=== PATIENT | male | born 1940 | race Asian ===

== ENCOUNTER 2022-12-04 16:07 | Inpatient (IN) | payer MEDICARE ==
[~2022-12-04] VITALS: Ht 167.6 cm; Wt 84.6 kg
--- NOTE | 2022-12-04 16:15 | NUR ---
PT IN BED 5 A/O X3, PLACED ON NC 2L FOR O2 SUPPORT PT IN SVT RATE OF 148 BPM. CONNECTED TO BEDSIDE MONITOR ECG/O2SAT/BP. ATTACHED TO AED FOR MONITORING. ADENOSINE ORDERED AND PUSHED PER MD ORDER. NO RATE CHANGE NOTED. RT, MD, RN, CHARGE NURSE AT BEDSIDE ASSISTING AND MONITORING. PT STARTED ON NS FLUIDS
--- NOTE | 2022-12-04 16:18 | NUR ---
AT [facility] FOR EVAL.
--- NOTE | 2022-12-04 16:18 | NUR ---
BLOOD DRAWN AND SENT TO LAB.
[2022-12-04] MEDS ORDERED: ADENOSINE 6 MG/2 ML VIAL ONE ×3 (16:25→16:36)
[2022-12-04] MEDS ORDERED: ADENOSINE 6 MG/2 ML VIAL IVP ONE (16:30)
--- NOTE | 2022-12-04 16:30 | NUR ---
ADENOSINE GIVEN 6MG PUSHED AND RAPID FLUSH NO RATE CHANGE AFTER 2 MINUTES. PUSHED ADDITIONAL 12MG PUSHED NO CHAGE SEEN AFTER SEVERAL MINUTES
--- NOTE | 2022-12-04 16:42 | NUR ---
DR. OCASIO SPEAKING WITH DR. ORTEZ.
[2022-12-04 16:45] LABS: BASOPHILS % (AUTO) 0.4 % (0.0-2.0); HEMATOCRIT 39 % (39-51); HEMOGLOBIN 12.6 g/dL (13.5-17.5); LYMPHOCYTES # (AUTO) 1.5 K/uL (0.8-4.8); LYMPHOCYTES % (AUTO) 29.2 % (20.0-44.0); MEAN CORPUSCULAR HGB CONC 33 g/dl (31.0-36.0); MEAN CORPUSCULAR VOLUME 98 fL (80-96); MONOCYTES # (AUTO) 0.6 K/uL (0.1-1.30); MONOCYTES % (AUTO) 11.2 % (2.0-12.0); NEUTROPHILS % (AUTO) 58.2 % (43.0-81.0); PLATELET COUNT (AUTO) 186 K/uL (150-450); RED BLOOD CELL COUNT(AUTO) 3.93 MIL/uL (4.5-6.0); WHITE BLOOD COUNT (AUTO) 5.1 K/uL (4.3-11.0)
[2022-12-04] MEDS ORDERED: DILTIAZEM HCL 25 MG IV ONE (16:47)
[2022-12-04] MEDS ORDERED: DILTIAZEM HCL 50 MG IV IV ONE (17:00)
[2022-12-04 17:13] LABS: ALANINE AMINOTRANSFERASE 32 U/L (12-78); ALBUMIN 3.2 g/dL (3.4-5.0); ALKALINE PHOSPHATASE 46 U/L (46-116); ASPARTATE AMINOTRANSFERASE 50 U/L (15-37); BILIRUBIN,DIRECT 0.1 mg/dL (0.0-0.2); BILIRUBIN,TOTAL 0.8 mg/dL (0.2-1.0); CALCIUM, SERUM 8.7 mg/dL (8.5-10.1); CARBON DIOXIDE 21 mmol/L (21-32); CHLORIDE 107 mmol/L (98-107); CREATININE 1.2 mg/dL (0.6-1.3); GLUCOSE 166 mg/dL (74-106); POTASSIUM 5.4 mmol/L (3.5-5.1); SODIUM SERUM 136 mmol/L (136-145); TOTAL PROTEIN, SERUM 6.7 g/dL (6.4-8.2); UREA NITROGEN, BLOOD 21 mg/dL (7-18)
[2022-12-04] MEDS ORDERED: LATA2.5D15 EACHEYE (17:16)
[2022-12-04] MEDS ORDERED: LEVO-146 PO (17:16)
[2022-12-04] MEDS ORDERED: OMEP20CA15 PO (17:16)
[2022-12-04] MEDS ORDERED: LOSA50TA39 PO (17:16)
[2022-12-04] MEDS ORDERED: CARV3.122 PO (17:16)
[2022-12-04] MEDS ORDERED: SACU1TAB PO (17:16)
[2022-12-04] MEDS ORDERED: ATOR10TA PO (17:16)
--- NOTE | 2022-12-04 17:17 | NUR ---
TROP 1330 NOTIFED. RECEIVED CRITICAL
[2022-12-04] MEDS ORDERED: AMIODARONE 150 MG/3 ML VIAL IV ONE (17:30)
[2022-12-04] MEDS ORDERED: AMIODARONE 150 MG in IV D5W 100 ML IV ONE ×2 (17:30→18:00)
[2022-12-04] MEDS ORDERED: SODIUM POLYSTYRENE SULFONATE 15 G/60 ML BOTTLE PO ONE (17:30)
[2022-12-04] MEDS ORDERED: AMIODARONE 450 MG in IV D5W 241 ML IV PRN (18:00)
[2022-12-04] MEDS ORDERED: SODIUM POLYSTYRENE SULFONATE 15 G/60 ML BOTTLE ONE (18:11)
[2022-12-04] MEDS ORDERED: PROPOFOL 20 ML IV ONE (18:24)
[2022-12-04] MEDS ORDERED: PROPOFOL 200 MG/20 ML VIAL IV ONE (18:30)
--- NOTE | 2022-12-04 18:30 | NUR ---
SYNCHRONIZED CARDIOVERSION IN PROCESS RT, 2 RS AT BEDSIDE. 1840 100J W/ SYNC OPTION ACTIVATED. AFTER DELIVERING SHOCK PT CONVERTED TO SINUS. O2 SAT BEGAN TO DROP PT WAS BAGED BY RT AND GIVEN 15L WHILE BAGGING IN PROCESS, OPA INSERTED TO MAINTAIN PATENT AIRWAY. AFER 15 MINUTES PTS GAG AND SPONTANIOUS RESPIRATIONS RETURNED PLACED ON NONREBREATHER TO MAINTAIN O2 STATUS.
--- NOTE | 2022-12-04 18:44 | NUR ---
CALLED [facility] [phone] ART HAS EKG AND WILL CALL US BACK.
--- NOTE | 2022-12-04 18:46 | NUR ---
CALLED [facility] [phone] ORTEZ SPEAKING WITH DR. RICKS
--- NOTE | 2022-12-04 19:27 | NUR ---
MIGUEL ANGEL LAM SENT TO LAB
[2022-12-04] MEDS ORDERED: HEPARIN SODIUM, PORCINE 5000 UNITS/1 ML VIAL IV ONE (19:30)
--- NOTE | 2022-12-04 19:57 | NUR ---
EPIC PANEL PAGED
[2022-12-04] MEDS ORDERED: HEPARIN INFUSION/D5W 500 ML IV PRN (20:00)
--- NOTE | 2022-12-04 20:28 | NUR ---
HANDOFF REPORT GIVEN TO SARY FAUST
[2022-12-04] MEDS ORDERED: FUROSEMIDE 40 MG/4 ML VIAL ONE (21:23)
[2022-12-04] MEDS ORDERED: MAGNESIUM HYDROXIDE 30 ML UDC PO PRN (21:30)
[2022-12-04] MEDS ORDERED: ACETAMINOPHEN 325 MG TABLET PO PRN (21:30)
[2022-12-04] MEDS ORDERED: MAG HYDROX/AL HYDROX/SIMETH 30 ML UDC PO PRN (21:30)
[2022-12-04] MEDS ORDERED: ONDANSETRON HCL/PF 4 MG/2 ML VIAL IVP PRN (21:30)
[2022-12-04] MEDS ORDERED: FUROSEMIDE 40 MG/4 ML VIAL IV SCH (21:30)
[2022-12-04] MEDS ORDERED: Z GUARD REMEDY 4 OZ OINT TP PRN (21:30)
[2022-12-04 23:15] VITALS: BP 140/79
--- NOTE | 2022-12-04 23:17 | NUR ---
PT TRASNFERED WITH ACLS PROTOCAL. DELIVERED IN STABLE CONDITION ADMITTING NURSE WAS BEDSIDE TO RECIEVE PT.
[2022-12-04 23:30] VITALS: BP 113/54
--- NOTE | 2022-12-04 23:30 | NUR ---
Received patient from ED via ACLS protocol AAOX3.S/P cardioversion in ED. Patient with sob and wheezing O2 6LNC in place.SR.VSS.Amiodarone gtt infusing at 1mg/min to R hand and Heparin gtt at 1200 unit/hr to L hand.Both sites intact.Repositioned to comfort.HOB elevated. Plan of care implemented.
[2022-12-04] MEDS: HEPARIN INFUSION/D5W 500 ML IV PRN (23:43)
[2022-12-04 23:45] VITALS: BP 123/70
[2022-12-04] MEDS: AMIODARONE 450 MG in IV D5W 241 ML IV PRN (23:46)
[2022-12-05] VITALS (32 sets, daily range): BP systolic 104–177; BP diastolic 42–107
[2022-12-05] MEDS ORDERED: LEVALBUTEROL HCL NEB 1.25 MG/0.5 ML VIAL.NEB NEB PRN
[2022-12-05] MEDS ORDERED: LATANOPROST EYE DROP 0.005% 2.5 ML BOTTLE ONE (00:06)
[2022-12-05] MEDS: LATANOPROST EYE DROP 0.005% 2.5 ML BOTTLE EACHEYE SCH ×2 (00:16→21:12)
--- NOTE | 2022-12-05 02:00 | NUR ---
At 0107 patient c/o chest pain 3/10 Tylenol given as requested with relief.EKG done.Continue to monitor.
[2022-12-05] MEDS ORDERED: AMIODARONE 150 MG/3 ML VIAL IV ONE (02:17)
[2022-12-05] MEDS: AMIODARONE 450 MG in IV D5W 241 ML IV PRN (02:22)
--- NOTE | 2022-12-05 02:23 | NUR ---
PRN Xopenex TX given due to SOB and wheezing.
--- NOTE | 2022-12-05 03:00 | NUR ---
Patient unable to urinate per urinal.Wong Cath inserted aseptically by Aguilar ZEPEDA.Draining clear yellow urine.
[2022-12-05 03:30] LABS: BASOPHILS % (AUTO) 0.1 % (0.0-2.0); HEMATOCRIT 41 % (39-51); HEMOGLOBIN 13.5 g/dL (13.5-17.5); LYMPHOCYTES % (AUTO) 11.6 % (20.0-44.0); MEAN CORPUSCULAR HGB CONC 33 g/dl (31.0-36.0); MEAN CORPUSCULAR VOLUME 99 fL (80-96); MONOCYTES # (AUTO) 0.5 K/uL (0.1-1.30); MONOCYTES % (AUTO) 5.7 % (2.0-12.0); NEUTROPHILS # (AUTO) 6.9 K/uL (1.8-8.9); NEUTROPHILS % (AUTO) 82.6 % (43.0-81.0); PLATELET COUNT (AUTO) 170 K/uL (150-450); RED BLOOD CELL COUNT(AUTO) 4.15 MIL/uL (4.5-6.0); WHITE BLOOD COUNT (AUTO) 8.4 K/uL (4.3-11.0)
[2022-12-05] MEDS ORDERED: MORPHINE SULFATE INJ 2 MG/ML DISP.SYRIN IV PRN (03:30)
[2022-12-05] MEDS ORDERED: SODIUM BICARBONATE SYR 50 MEQ/50 ML DISP.SYRIN IV ONE (03:30)
--- NOTE | 2022-12-05 03:30 | NUR ---
Patient ABG'S result pH=7.2,pCO2=32.5,pO2=68.1,KLZ614.0 called to with orders received and carried out.Bipap will be place by RT.
[2022-12-05 03:45] LABS: ALANINE AMINOTRANSFERASE 836 U/L (12-78); ALBUMIN 3.1 g/dL (3.4-5.0); ALKALINE PHOSPHATASE 50 U/L (46-116); ASPARTATE AMINOTRANSFERASE 668 U/L (15-37); BILIRUBIN,TOTAL 1.7 mg/dL (0.2-1.0); CALCIUM, SERUM 7.9 mg/dL (8.5-10.1); CARBON DIOXIDE 18 mmol/L (21-32); CHLORIDE 107 mmol/L (98-107); CREATININE 1.5 mg/dL (0.6-1.3); GLUCOSE 169 mg/dL (74-106); MAGNESIUM 2.1 mg/dL (1.8-2.4); PHOSPHORUS 6.6 mg/dL (2.5-4.9); POTASSIUM 5.4 mmol/L (3.5-5.1); SODIUM SERUM 137 mmol/L (136-145); TOTAL PROTEIN, SERUM 6.7 g/dL (6.4-8.2); UREA NITROGEN, BLOOD 24 mg/dL (7-18)
--- NOTE | 2022-12-05 03:45 | NUR ---
pt placed on BIPAP on settings IPAP 15, EPAP 5, back up rate 16, FIO2 40% per MD orders Addendum: 12/05/22 at 0419 by GORAN DOUGLAS RT Amended: Links added.
[2022-12-05 03:53] LABS: THYROID STIMULATING HORMONE 2.995 uIU/mL (0.358-3.74)
[2022-12-05] MEDS ORDERED: SODIUM POLYSTYRENE SULF. PWD 15 GM UDC PO ONE (04:00)
--- NOTE | 2022-12-05 04:48 | NUR ---
Patient vomited while on BIPAP.Zofran administered as PRN meds.Maintain HOB elevated.
[2022-12-05] MEDS ORDERED: SODIUM POLYSTYRENE SULFONATE 15 G/60 ML BOTTLE ONE (04:54)
[2022-12-05] MEDS ORDERED: SODIUM POLYSTYRENE SULFONATE 15 G/60 ML BOTTLE PO STA (04:58)
[2022-12-05] MEDS ORDERED: SODIUM POLYSTYRENE SULFONATE 15 G/60 ML BOTTLE RC STA (04:59)
--- NOTE | 2022-12-05 06:00 | NUR ---
Patient congested.Secretions empty suction by RT Issac.Breathing tx given.AM care done. Heparin gtt restarted at 950 units/hr per weight Based Heparin Dosing Orders for ACS protocol. Amiodarone gtt infusing at 0.5mg/min Turned and repositioned.No acute distress noted.
--- NOTE | 2022-12-05 07:26 | NUR ---
VISION REHABILITATION THERAPIST NOTE Patient is resting in bed upon checking. GCS E4V5M6, bilateral pupils 3mm PEARLA. trade mark attorney showed SR HR 70s/min, with ST depression noted, MAP>65mmHg, Spo2 98% with 10L oxygen given via simple face mask, no respiratory distress noted. Reduced oxygen to 8L and RT was informed. IV sites are dry and intact, with amiodarone and heparin infusion running. No bilateral LL edema. Call llanes is placed within reach, bed is locked and placed in the lowest position. Will continue monitoring and care.
[2022-12-05] MEDS: LEVOTHYROXINE SODIUM 50 MCG TABLET PO SCH (07:29)
--- NOTE | 2022-12-05 08:18 | NUR ---
AUTOMOBILE TECHNICIAN NOTE - bedside swallowing evaluation Provided sips and 30mL of water to patient. He did not cough, choke or show signs of respiratory distress with thin liquid.
[2022-12-05] MEDS: CARVEDILOL 3.125 MG TABLET PO SCH ×2 (08:38→21:12)
[2022-12-05 08:41] LABS: ABG BASE EXCESS -11.9 mmol/L; ABG OXYGEN SATURATION 90.4 % (92.0-98.5); ABG PCO2 32.5 mmHg (35.0-45.0); ABG PH 7.253 (7.350-7.450); ABG PO2 68.1 mmHg (75.0-100.0); AaDO2 208.6 mmHg; COHb 0.8 % (0.5-1.5); MetHb 0.2 % (0.0-1.5); O2Hb 89.5 % (94.0-97.0); SITE, ABG Left Radial
[2022-12-05 08:41] LABS: ABG OXYGEN SATURATION 93.8 % (92.0-98.5); ABG PCO2 32.9 mmHg (35.0-45.0); ABG PH 7.326 (7.350-7.450); ABG PO2 76.9 mmHg (75.0-100.0); AaDO2 206.5 mmHg; COHb 0.9 % (0.5-1.5); MetHb 0.1 % (0.0-1.5); O2Hb 92.9 % (94.0-97.0); SITE, ABG Right Brachial; VENT MODE, BG nasal cannula
--- NOTE | 2022-12-05 09:17 | NUR ---
SUPERVISOR SCREEN PRINTING NOTE Patient complained chest pain, administered IV morphine with good effect. He vomited 15 minutes after morphine was administered, will keep patient NPOEM for now.
--- NOTE | 2022-12-05 10:41 | NUR ---
SHIELD OPERATOR NOTE Noted desaturation after titrating oxygen to 4L via NC. Increased oxygen back to 6L via NC, SpO2 95%, RR~28/min. environmental monitoring technician showed SR HR 65/min with obvious ST depression and TWI on ECG. MAP & DBP is satisfactory. Noted that patient's circulation is not good, and patient said that he did not feel good as well. Informed DR. Pak about patient's latest condition, with vital signs and urine output mentioned(~10mL/hr only). Also contacted garbage truck driver Ginette to perform an ECHO, she said that she would come in 30 minutes.
--- NOTE | 2022-12-05 11:50 | NUR ---
MANAGER RESPIRATORY NOTE Advance Scout Dr. Pak came and visited patient. After report and assessment, he ordered stat IV 60mg furosemide. Administered the dose as ordered. Will monitor urine output.
[2022-12-05] MEDS ORDERED: FUROSEMIDE 20 MG/2 ML VIAL IV ONE (12:00)
[2022-12-05] MEDS: ASPIRIN EC 325 MG TABLET.DR PO SCH (12:38)
--- NOTE | 2022-12-05 12:54 | NUR ---
ADMIN DIR NOTE - aPTT aPTT 56, no change in rate of heparin infusion as guided by the protocol. Will recheck ptt tomorrow.
--- NOTE | 2022-12-05 14:34 | NUR ---
CAPACITY ANALYST NOTE Within two hours after patient was given furosemide, patient had passed 680mL of urine. His breathing was also less labored and he looked more peaceful. Would start titrating oxygen down. Patient's condition was updated with Dr. Pak.
[2022-12-05] MEDS: FUROSEMIDE 40 MG/4 ML VIAL IV SCH (17:21)
[2022-12-05] MEDS: ATORVASTATIN 10 MG TABLET PO SCH (17:22)
[2022-12-05] MEDS ORDERED: ATORVASTATIN 10 MG TABLET PO SCH (18:00)
[2022-12-05] MEDS: HEPARIN INFUSION/D5W 500 ML IV PRN ×2 (20:07→20:54)
--- NOTE | 2022-12-05 21:30 | NUR ---
RN NOTE INFORMED MANAGER NEWS ALISE JOHNS THAT PATIENT IS CURRENTLY IN WIDE COMPLEX TACHYCARDIA HR 120S. RECEIVED ORDER FOR METOPROLOL 5MG IVP X1.
[2022-12-05] MEDS ORDERED: METOPROLOL TARTRATE INJ 5 MG/5 ML AMPUL IVP ONE (21:41)
[2022-12-06] VITALS (25 sets, daily range): BP systolic 93–129; BP diastolic 52–89
--- NOTE | 2022-12-06 00:26 | NUR ---
RN NOTE INFORMED ANDREAS, DATA BASE DESIGN ANALYST THAT PATIENT IS REQUESTING SOMETHING FOR SLEEP. NO PRNS AVAILABLE. RECEIVED ORDER FOR RESTORIL 15MG PO QHS PRN.
[2022-12-06] MEDS ORDERED: TEMAZEPAM 15 MG CAPSULE PO PRN (00:30)
[2022-12-06 06:13] LABS: BASOPHILS % (AUTO) 0.3 % (0.0-2.0); EOSINOPHILS % (AUTO) 0.1 % (0.0-6.0); HEMATOCRIT 38 % (39-51); HEMOGLOBIN 12.6 g/dL (13.5-17.5); LYMPHOCYTES # (AUTO) 0.9 K/uL (0.8-4.8); LYMPHOCYTES % (AUTO) 10.9 % (20.0-44.0); MEAN CORPUSCULAR HGB CONC 34 g/dl (31.0-36.0); MEAN CORPUSCULAR VOLUME 98 fL (80-96); MONOCYTES # (AUTO) 0.2 K/uL (0.1-1.30); MONOCYTES % (AUTO) 3.1 % (2.0-12.0); NEUTROPHILS # (AUTO) 6.8 K/uL (1.8-8.9); NEUTROPHILS % (AUTO) 85.6 % (43.0-81.0); PLATELET COUNT (AUTO) 151 K/uL (150-450); RED BLOOD CELL COUNT(AUTO) 3.84 MIL/uL (4.5-6.0); WHITE BLOOD COUNT (AUTO) 7.9 K/uL (4.3-11.0)
--- NOTE | 2022-12-06 06:31 | NUR ---
RN CLOSING NOTE A/OX4. RECEIVED ON 2L, PATIENT DESATURATING, INREASED TO 6L NC. RECEIVED ON SINUS RHYTHM NOW PATIENT SINUS TACHYCARDIA HR 120. LOPRESSOR 5MG IVP GIVEN X1, NO CHANGE NOTED. ANDREASCAKE FROSTER AWARE. COHEN CATHETER IN PLACE, BM X2. PRN RESTORIL GIVEN. BILATERAL SOFT WRIST RESTRAINTS IN PLACE PATIENT BECAME RESTLESS, REMOVED MIDLINE, EKG LEADS AND PULSE OX. NEW IV PLACED CONTINUED HEPARIN GTT @950UNIT. AWAITING PTT THIS AM.
--- NOTE | 2022-12-06 06:55 | NUR ---
RN NOTE PTT IS 81.5. PER PROTOCOL HOLD 30 MINS AND DECREASE BY 150 UNITS. HELD AT 0650. TO RESUME AT 0720 @800 UNITS. Addendum: 12/06/22 at 0657 by VICTOR HUGO EUCEDA RN NEST PTT FOR 1330
[2022-12-06 07:00] LABS: ALBUMIN 2.8 g/dL (3.4-5.0); ALKALINE PHOSPHATASE 47 U/L (46-116); BILIRUBIN,DIRECT 0.8 mg/dL (0.0-0.2); BILIRUBIN,TOTAL 1.8 mg/dL (0.2-1.0); CALCIUM, SERUM 7.9 mg/dL (8.5-10.1); CARBON DIOXIDE 26 mmol/L (21-32); CHLORIDE 106 mmol/L (98-107); CREATININE 1.4 mg/dL (0.6-1.3); GLUCOSE 134 mg/dL (74-106); MAGNESIUM 2.1 mg/dL (1.8-2.4); PHOSPHORUS 4.4 mg/dL (2.5-4.9); POTASSIUM 3.7 mmol/L (3.5-5.1); SODIUM SERUM 139 mmol/L (136-145); TOTAL PROTEIN, SERUM 5.8 g/dL (6.4-8.2); UREA NITROGEN, BLOOD 39 mg/dL (7-18)
--- NOTE | 2022-12-06 07:14 | NUR ---
SPEECH THERAPIST NOTE Patient is resting in bed upon checking. GCS E4V4M6, bilateral pupils 3mm PEARLA. Patient is disoriented to date, time and place, reorientation was given. Restraints are in use because of his confusion and pulling out lines. Circulation is good with restraints use. conveyor monitor showed SVT HR 120s/min, MAP>65mmHg, SpO2 98% with 6L oxygen given via nasal cannula, no respiratory distress noted. Left forearm IV site is dry and intact. Wong is in-situ, collecting clear and yellowish urine. No bilateral LL edema. Call llanes is placed within reach, bed is locked and placed in the lowest position. Will continue monitoring and care.
--- NOTE | 2022-12-06 07:21 | NUR ---
BAND TUMBLER NOTE Restarted heparin drip at 800units/hr at 0720. Will recheck aptt at 11:20.
[2022-12-06] MEDS: LEVOTHYROXINE SODIUM 50 MCG TABLET PO SCH (07:48)
[2022-12-06 07:59] LABS: ALANINE AMINOTRANSFERASE 6333 U/L (12-78); ASPARTATE AMINOTRANSFERASE 6501 U/L (15-37)
[2022-12-06] MEDS: ASPIRIN EC 325 MG TABLET.DR PO SCH (08:15)
[2022-12-06] MEDS: FUROSEMIDE 40 MG/4 ML VIAL IV SCH ×2 (08:16→18:11)
[2022-12-06] MEDS: CARVEDILOL 3.125 MG TABLET PO SCH (08:16)
--- NOTE | 2022-12-06 08:56 | NUR ---
MARBLE CHIP TERRAZZO WORKER NOTE Informed Dr. Pak about patient's SVT. Patient's condition is also informed.
[2022-12-06] MEDS ORDERED: DIGOXIN INJ 0.5 MG/2 ML AMPUL IV ONE ×2 (13:00→19:00)
--- NOTE | 2022-12-06 13:07 | NUR ---
HATCHERY EMPLOYEE NOTE Dr. Pak assessed patient at bedside. He ordered IV 0.5mg digoxin stat and 0.25mg(6 hours later) for tachycardia. ECG was done, the 0.5mg dose of digoxin is administered. Will keep monitoring.
--- NOTE | 2022-12-06 13:14 | NUR ---
HYDRAULIC ASSEMBLER NOTE Dr. Pak ordered stat 80mg IV lidocaine over 2-3 minutes, then we would wait for 15 minutes to assess drug effect and inform Dr. Pak afterwards.
[2022-12-06] MEDS ORDERED: LIDOCAINE 100MG/5ML DISP SYR IV ONE (13:30)
[2022-12-06 14:00] LABS: BILIRUBIN,URINE NEGATIVE (NEGATIVE); COLOR,URINE YELLOW (YELLOW); LEUKOCYTE ESTERASE ,URINE NEGATIVE (NEGATIVE); NITRITE, URINE NEGATIVE (NEGATIVE); PH,URINE 5.5 (5.0-8.0); PROTEIN,URINE TRACE mg/dl (NEGATIVE); UGLUCOSE NEGATIVE (NEGATIVE); UROBILINOGEN,URINE 0.2 EU/dL (0.2)
--- NOTE | 2022-12-06 14:01 | NUR ---
CIGARETTE VENDOR NOTE - lidocaine 80mg of IV lidocaine is administered peripherally from 13:23-13:26. environmental monitoring technician showed a transient SR with HR 90/min, then HR went back to SVT 118/min. At 13:45, called Dr. Pak to report the findings but in vain. Would contact again for further management.
[2022-12-06 14:14] LABS: CREATININE, URINE 32.3 MG/DL (30.0-125.0)
[2022-12-06] MEDS ORDERED: LIDOCAINE 100MG/5ML DISP SYR IV STA (14:14)
--- NOTE | 2022-12-06 14:26 | NUR ---
CONDUCTOR SYMPHONIC ORCHESTRA NOTE Dr. Pak replied and ordered 40mg of IV lidocaine. Administered from 14:19-1422, would monitor rate and rhythm.
--- NOTE | 2022-12-06 15:30 | NUR ---
CARDROOM MANAGER NOTE Cardiac rhythm remains SVT HR 125/min. Informed Dr. Pak about the result.
[2022-12-06 16:02] LABS: BACTERIA,URINE None seen /HPF (None Seen); FINE GRANULAR CASTS,URINE Few /LPF (None Seen); RBC,URINE 51-80 /HPF (0-2); SQUAMOUS EPITHELIAL CELL,UR 0-2 /HPF (None Seen); URINE AMORPHOUS URATE Few /HPF (None Seen); WBC,URINE 0-2 /HPF (0-3)
--- NOTE | 2022-12-06 17:00 | NUR ---
COMMERCIAL ILLUSTRATOR NOTE APTT 61, which is in therapeutic range. Continue current heparin concentration at 800u and for recheck tomorrow.
[2022-12-06] MEDS ORDERED: IV LIDOCAINE HCL/D5W/PF/500ML 2,000 MG in PREMIX 1 EA IV PRN (17:30)
--- NOTE | 2022-12-06 17:30 | NUR ---
AIR DRIER NOTE Dr. Pak ordered lidocaine infusion at 1mg/min without titration.
[2022-12-06] MEDS: METOPROLOL TARTRATE 25 MG TABLET PO SCH ×2 (18:10→21:02)
[2022-12-06] MEDS: ATORVASTATIN 10 MG TABLET PO SCH (18:10)
--- NOTE | 2022-12-06 18:26 | NUR ---
GLOBAL EXPANSION SALES DIRECTOR NOTE Consent is obtained from patient for left heart cath +/- PCI.
--- NOTE | 2022-12-06 19:15 | NUR ---
TIMBER ROBBER NOTE RECEIVED PT FOR CONTINUITY OF CARE. PATIENT A/OX1-2 IN NO S/SX OF ACUTE DISTRESS AT THIS TIME; CURRENTLY ON 2L OF O2 VIA NC, WITH 02 SAT >95% AT THIS TIME. RECEIVED PT WITH RUNNING DRIPS FOLLOWS:LIDOCAINE DRIP 1MG/MIN (NO TITRATION) AND HEPARIN DRIP @ 800U/HR; BOTH RUNNING PER PROTOCOL. PT ON NPO EXCEPT MEDS. PT WITH COHEN CATH SECURED AND INTACT DRAINING YELLOW TO CLEAR URNINE OUTPUT MODERATE IN AMOUNT. WILL ENSURE SAFETY MEASURES WITHIN THE SHIFT. PATIENT BED ALARM IS ON. HEAD OF BED ELEVATED. BED IS LOCKED, IN LOWEST POSITION AND SIDE RAILS UP. CALL LIGHT WITHIN REACH OF THE PATIENT. WILL CONTINUE TO MONITOR AND REASSESS FOR ANY CHANGES AND WILL CARRY OUT ANY ONGOING AND ACTIVE MD ORDER.
[2022-12-06] MEDS: LATANOPROST EYE DROP 0.005% 2.5 ML BOTTLE EACHEYE SCH (21:02)
[2022-12-07] VITALS (22 sets, daily range): BP systolic 107–158; BP diastolic 59–85
[2022-12-07] MEDS: HEPARIN INFUSION/D5W 500 ML IV PRN (01:55)
--- NOTE | 2022-12-07 04:00 | NUR ---
EVENT PLANNING MANAGER NOTE PATIENT REMAINED TO BE IN NO SIGNS OF ACUTE RESPIRATORY DISTRESS , SAFE ENVIRONMENT MAINTAINED FOR PT. AM PATIENT CARE ASSISTANCE RENDERED. WILL CONTINUE TO MONITOR AND REASSESS FOR ANY CHANGES THROUGHOUT THE SHIFT.
[2022-12-07 04:52] LABS: BASOPHILS % (AUTO) 0.2 % (0.0-2.0); EOSINOPHILS % (AUTO) 0.4 % (0.0-6.0); HEMATOCRIT 39 % (39-51); HEMOGLOBIN 12.9 g/dL (13.5-17.5); LYMPHOCYTES # (AUTO) 0.9 K/uL (0.8-4.8); LYMPHOCYTES % (AUTO) 12.3 % (20.0-44.0); MEAN CORPUSCULAR HGB CONC 33 g/dl (31.0-36.0); MEAN CORPUSCULAR VOLUME 98 fL (80-96); MONOCYTES # (AUTO) 0.3 K/uL (0.1-1.30); MONOCYTES % (AUTO) 4.8 % (2.0-12.0); NEUTROPHILS # (AUTO) 5.9 K/uL (1.8-8.9); NEUTROPHILS % (AUTO) 82.3 % (43.0-81.0); PLATELET COUNT (AUTO) 145 K/uL (150-450); RED BLOOD CELL COUNT(AUTO) 3.97 MIL/uL (4.5-6.0); WHITE BLOOD COUNT (AUTO) 7.2 K/uL (4.3-11.0)
[2022-12-07 05:13] LABS: ALBUMIN 2.6 g/dL (3.4-5.0); BILIRUBIN,DIRECT 0.9 mg/dL (0.0-0.2); BILIRUBIN,TOTAL 2.1 mg/dL (0.2-1.0); CALCIUM, SERUM 7.8 mg/dL (8.5-10.1); CREATININE 1.2 mg/dL (0.6-1.3); POTASSIUM 3.7 mmol/L (3.5-5.1); TOTAL PROTEIN, SERUM 5.8 g/dL (6.4-8.2)
--- NOTE | 2022-12-07 05:30 | NUR ---
ANESTHETIST NOTE APPT RESULT: 58.0; PER HEPARIN DOSING ORDER; CONSIDERING PT'S WEIGHT 85KG AND APPT RESULT OF 58.0 FALLS TO THE CRITERIA : APTT: 46-70 <NO CHANGE>. CURRENTLY HEPARIN DRIP RUNNING AT 800UNITS PER HOUR, NO ADJUSTMENT NEEDED AT THIS TIME. NEXT APTT WILL BE BELKIS AM. GED PREPARATION TEACHER MADE AWARE.
--- NOTE | 2022-12-07 07:01 | NUR ---
WOODWORKING SHOP HAND CLOSING NOTE PATIENT REMAINS IN ROOM IN NO SIGNS OF RESPIRATORY DISTRESS, PATIENT STILL ON 2L OF O2 VIA NC;TOLERATING WELL SATURATING @ >95% SP02. WIDE VENTRICULAR TACHYCARDIA ON MONITOR; HR RANGES FRO,M 110-120s WITHIN THE SHIFT; WITH EPISODES OF AFIB (ELSIE TAVAREZ AWARE). SAFETY MEASURES IMPLEMENTED, BED IN LOWEST POSITION, LOCKED, SIDE RAILS UP, CALL LIGHT WITHIN REACH. ALL NEEDS AND ORDERS ADDRESSED DURING THE SHIFT. IV ACCESS MAINTAINED INTACT, SECURED AND FLUSHING WELL. ALL DUE MEDS GIVEN ORDERED & SCHEDULED ; PATIENT TOLERATED WELL. STILL WITH ONGOING DRIP FOLLOWS: LIDOCAINE DRIP 1MG/MIN (NO TITRATION) AND HEPARIN DRIP @ 800U/HR; BOTH ALL RUNNING AND MONITORED PER PROTOCOL. PATIENT KEPT CLEAN AND COMFORTABLE WITHIN THE SHIFT. PATIENT FOR L HEART CATH ; CONSENT IN THE CHART AND PATIENT PRE OP SITE CLEANED AND SHAVED. PATIENT ENDORSED TO INCOMING SHIFT RN WITH STABLE CONDITION AND FOR CONTINUITY OF CARE.
--- NOTE | 2022-12-07 07:56 | NUR ---
RN NOTES PT IS GOING FOR LEFT HEART CATH. PER CARDIAC DIALS SUPERVISOR NURSE, HOLD LOPRESSOR, LASIX, AND ASPIRIN.
[2022-12-07] MEDS ORDERED: IV NS 0.9% 500 ML IV ONE (08:13)
[2022-12-07] MEDS ORDERED: IODIXANOL 150 ML IV ONE (08:14)
[2022-12-07] MEDS ORDERED: IV SET PRIMARY PUMP SET 1 EA INFUS.SET MC ONE (08:14)
[2022-12-07] MEDS ORDERED: LIDOCAINE HCL/MPF 1% 30 ML VIAL IJ ONE (08:14)
--- NOTE | 2022-12-07 08:26 | NUR ---
RN NOTES PER DR. HARRINGTON'S REQUEST, HOLDING LASIX, BUT GIVING REST OF PT'S MEDS THIS MORNING.
[2022-12-07] MEDS: FUROSEMIDE 40 MG/4 ML VIAL IV SCH (08:27)
[2022-12-07] MEDS: ASPIRIN EC 325 MG TABLET.DR PO SCH (08:31)
[2022-12-07] MEDS: LEVOTHYROXINE SODIUM 50 MCG TABLET PO SCH (08:31)
[2022-12-07] MEDS: METOPROLOL TARTRATE 25 MG TABLET PO SCH ×2 (08:31→21:00)
--- NOTE | 2022-12-07 09:30 | NUR ---
RN NOTES PT TAKEN TO CARDIAC PLUMBER SUPERVISOR FOR SCHEDULED PROCEDURE AFTER CT ABDOMEN WAS COMPLETED.
[2022-12-07] MEDS ORDERED: NITROGLYCERIN IN 5 % DEXTROSE 250 ML IV ONE (09:56)
[2022-12-07] MEDS ORDERED: FENTANYL PF 100MCG/2ML AMPUL ONE (10:38)
[2022-12-07] MEDS ORDERED: MIDAZOLAM HCL 2 MG/2ML VIAL ONE (10:38)
[2022-12-07] MEDS ORDERED: FLUMAZENIL 0.5 MG VIAL ONE (10:47)
[2022-12-07] MEDS ORDERED: NALOXONE HCL 0.4 MG/ML AMPUL ONE (10:47)
--- NOTE | 2022-12-07 11:14 | NUR ---
RN NOTES PT BACK ON THE FLOOR. PROCEDURE COULD NOT BE COMPLETED DUE TO PT'S CONDITION (READ DR. OCASIO'S POST-OP NOTES FOR MORE DETAILS). PT LOOKS COMFORTABLE AT THIS TIME, HEPARIN DRIP D/C PER PHYSICIAN'S ORDER, BUT LIDOCAINE TO BE CONTINUED. PT CURRENTLY ON 4L NC AND TOLERATING WELL. TR BAND CAN PROCEED TO BE DISCONTINUED AT 1300 PER PHYSICIAN'S ORDER.
[2022-12-07] MEDS ORDERED: AMIODARONE 150 MG in IV D5W 100 ML IV STA (11:19)
--- NOTE | 2022-12-07 13:00 | NUR ---
RN NOTES NOTIFIED DR. HARRINGTON THAT PT WOULD LIKE TO EAT. PER THE DOCTOR'S REQUEST, PLACED A CARDIAC DIET ORDER FOR PT.
[2022-12-07] MEDS ORDERED: FUROSEMIDE 40 MG/4 ML VIAL IV ONE (14:30)
[2022-12-07] MEDS ORDERED: FUROSEMIDE 40 MG/4 ML VIAL IV SCH (17:00)
[2022-12-07] MEDS: ATORVASTATIN 10 MG TABLET PO SCH (17:13)
[2022-12-07] MEDS: AMIODARONE 450 MG in IV D5W 241 ML IV PRN (18:57)
--- NOTE | 2022-12-07 19:38 | NUR ---
RN NOTES PT LOOKS COMFORTABLE. NO COMPLAINT OF PAIN AT THIS TIME, ALL DUE MEDICATIONS GIVEN. REPORT GIVEN TO MAURO FAUST FOR CONTINUATION OF CARE.
--- NOTE | 2022-12-07 20:43 | NUR ---
ICU/RN: RECEIVED CALL FROM TRANSFER CENTER REGARDING BED AVAILABILITY AT [facility] FOR PT TRANSFER FOR POSSIBLE ABLATION. [facility] BED 15. NURSE TO NURSE REPORT NUMBER [phone]. CALLED NURSING PROGRAM HOST MARY FAUST FOR TRANSPORT SERVICES. [facility] [phone] NO CRITICAL CARE TRANSPORT AVAILABLE TONIGHT. [facility] [phone] NO CRITICAL CARE TRANSPORT AVAILABLE TONIGHT. [facility] [phone] NO CRITICAL CARE TRANSPORT AVAILABLE TONIGHT. DR. OCASIO MADE AWARE. WILL ENDORSE TO AM SHIFT TO CONTINUE WITH TRANSFER. Addendum: 12/07/22 at 2117 by MAURO CARDENAS RN [facility] TRANSPORT [phone] NO CRITICAL CARE TRANSPORT AVAILABLE TONIGHT.
[2022-12-07] MEDS: LATANOPROST EYE DROP 0.005% 2.5 ML BOTTLE EACHEYE SCH (22:06)
[2022-12-08] VITALS (22 sets, daily range): BP systolic 118–183; BP diastolic 28–132
[2022-12-08] MEDS: AMIODARONE 450 MG in IV D5W 241 ML IV PRN (02:03)
[2022-12-08 08:04] LABS: BASOPHILS % (AUTO) 0.2 % (0.0-2.0); HEMATOCRIT 42 % (39-51); HEMOGLOBIN 13.7 g/dL (13.5-17.5); LYMPHOCYTES # (AUTO) 1.1 K/uL (0.8-4.8); LYMPHOCYTES % (AUTO) 14.7 % (20.0-44.0); MEAN CORPUSCULAR HGB CONC 32 g/dl (31.0-36.0); MEAN CORPUSCULAR VOLUME 99 fL (80-96); MONOCYTES # (AUTO) 0.6 K/uL (0.1-1.30); MONOCYTES % (AUTO) 7.9 % (2.0-12.0); NEUTROPHILS # (AUTO) 5.8 K/uL (1.8-8.9); NEUTROPHILS % (AUTO) 76.2 % (43.0-81.0); PLATELET COUNT (AUTO) 145 K/uL (150-450); RED BLOOD CELL COUNT(AUTO) 4.26 MIL/uL (4.5-6.0); WHITE BLOOD COUNT (AUTO) 7.6 K/uL (4.3-11.0)
[2022-12-08 08:06] LABS: CALCIUM, SERUM 8.2 mg/dL (8.5-10.1); CREATININE 1.1 mg/dL (0.6-1.3); POTASSIUM 3.7 mmol/L (3.5-5.1)
[2022-12-08 08:17] LABS: ALBUMIN 2.8 g/dL (3.4-5.0); BILIRUBIN,TOTAL 1.9 mg/dL (0.2-1.0); MAGNESIUM 2.3 mg/dL (1.8-2.4); PHOSPHORUS 2.8 mg/dL (2.5-4.9); TOTAL PROTEIN, SERUM 6.3 g/dL (6.4-8.2)
[2022-12-08] MEDS: ASPIRIN EC 325 MG TABLET.DR PO SCH (08:59)
[2022-12-08] MEDS: LEVOTHYROXINE SODIUM 50 MCG TABLET PO SCH (08:59)
[2022-12-08] MEDS ORDERED: FUROSEMIDE 40 MG/4 ML VIAL IV SCH (09:00)
[2022-12-08] MEDS ORDERED: NITROGLYCERIN 30 GM TUBE TP SCH (09:00)
[2022-12-08] MEDS ORDERED: hydrALAZINE HCL 50 MG TABLET PO SCH (09:00)
[2022-12-08] MEDS: METOPROLOL TARTRATE 25 MG TABLET PO SCH (09:01)
--- NOTE | 2022-12-08 09:55 | NUR ---
RN NOTES PLACING A NURSING COMMUNICATION DR. UREÑA IS ALLOWING AMIODARONE DRIP TO STOP FOR THE TIME BEING FOR PURPOSES OF TRANSFERRING PT TO [facility].
--- NOTE | 2022-12-08 10:12 | NUR ---
RN NOTES CALLED [facility] AND GAVE REPORT TO VAHID FAUST. NOTIFIED HER THAT PT WILL BE TRANSPORTED W/O THE AMIODARONE DRIP AND HAS BEEN CLEARED WITH DR. UREÑA.
--- NOTE | 2022-12-08 11:13 | NUR ---
RN CLOSING NOTES PT BEING PICKED UP BY EMT FOR TRANSFER TO [place] ICU ROOM 15. REPORT GIVEN TO EMT AND RECEIVING NURSE VAHID FAUST. AMIODARONE DRIP STOPPED AT THIS TIME PER PHYSICIAN'S ORDER. BELONGINGS CHECKED AND ALL ACCOUNTED FOR AND SENT WITH PT. PT HAS SIGNED TRANSFER FORMS ALONG WITH BELONGINGS LIST. PT LOOKS COMFORTABLE WITH NO COMPLAINT OF PAIN AT TIME OF TRANSFER.
== END 2022-12-08 11:13 | disposition short-term general hospital (02) | DRG 280 ==
LOC: ER 16:43 → ICU 20:08
PROVIDERS: ADMIT Internal Medicine; ATTEND Internal Medicine
PROC: 5A2204Z Restoration of Cardiac Rhythm, Single (ICD-10-PCS; principal; 2022-12-04)
PROC: 05HA33Z Insertion of Infusion Device into Left Brachial Vein, Percutaneous Approach (ICD-10-PCS; 2022-12-05)
PROC: 5A09357 Assistance with Respiratory Ventilation, Less than 24 Consecutive Hours, Continuous Positive Airway Pressure (ICD-10-PCS; 2022-12-05)
PROC: 4A023N7 Measurement of Cardiac Sampling and Pressure, Left Heart, Percutaneous Approach (ICD-10-PCS; 2022-12-07)
PROC: B211YZZ Fluoroscopy of Multiple Coronary Arteries using Other Contrast (ICD-10-PCS; 2022-12-07)
DX: I47.20 Ventricular tachycardia, unspecified (principal); I50.43 Acute on chronic combined systolic (congestive) and diastolic (congestive) heart failure; I21.A1 Myocardial infarction type 2; J96.01 Acute respiratory failure with hypoxia; N17.0 Acute kidney failure with tubular necrosis; E87.20 Acidosis, unspecified; I11.0 Hypertensive heart disease with heart failure; I47.1 Supraventricular tachycardia; E03.9 Hypothyroidism, unspecified; E78.5 Hyperlipidemia, unspecified; E88.09 Other disorders of plasma-protein metabolism, not elsewhere classified; I25.10 Atherosclerotic heart disease of native coronary artery without angina pectoris; I25.82 Chronic total occlusion of coronary artery; T46.2X5A Adverse effect of other antidysrhythmic drugs, initial encounter; Y92.009 Unspecified place in unspecified non-institutional (private) residence as the place of occurrence of the external cause; K76.89 Other specified diseases of liver; E87.5 Hyperkalemia; E83.39 Other disorders of phosphorus metabolism; I45.10 Unspecified right bundle-branch block; Z79.899 Other long term (current) drug therapy; Z20.822 Contact with and (suspected) exposure to COVID-19
CPT/HCPCS: 31720; 36415; 36600; 71045-TC; 76770-TC; 80048-TC; 80053-TC; 80076-TC; 81001; 82570-TC; 82803-TC; 82962-TC; 83735-TC; 83880; 84100-TC; 84132-TC; 84300-TC; 84443-TC; 84484-TC; 85025-TC; 85610-TC; 85730-TC; 87081-TC; 93307-TC; 94799-TC; A4216; A4223; G0378; G0500; J0153; J0282; J1160; J1644; J1940; J2001; J2250; J2270; J2310; J2405; J2704; J3010; J3490; J7030; J7040; J7050; J7060; Q9967

== ENCOUNTER 2023-04-09 13:39 | Inpatient (IN) | payer MEDICARE ==
[~2023-04-09] VITALS: Ht 167.6 cm; Wt 68.9 kg
[~2023-04-09 13:39] MED LIST: ATOR10TA PO; CARV3.122 PO; LATA2.5D15 EACHEYE; LEVO-146 PO; LOSA50TA39 PO; OMEP20CA15 PO; SACU1TAB PO
[2023-04-09 14:44] LABS: BASOPHILS % (AUTO) 0.1 % (0.0-2.0); EOSINOPHILS # (AUTO) 0.1 K/uL (0.0-0.7); EOSINOPHILS % (AUTO) 0.5 % (0.0-6.0); HEMATOCRIT 35 % (39-51); HEMOGLOBIN 12.1 g/dL (13.5-17.5); LYMPHOCYTES # (AUTO) 1.5 K/uL (0.8-4.8); MEAN CORPUSCULAR HEMOGLOBIN 33 PG (26.0-33.0); MEAN CORPUSCULAR HGB CONC 34 g/dl (31.0-36.0); MEAN CORPUSCULAR VOLUME 98 fL (80-96); MONOCYTES % (AUTO) 9.8 % (2.0-12.0); NEUTROPHILS % (AUTO) 75.6 % (43.0-81.0); PLATELET COUNT (AUTO) 215 K/uL (150-450); RED BLOOD CELL COUNT(AUTO) 3.62 MIL/uL (4.5-6.0); RED CELL DISTRIBUTION WIDTH 13.3 % (11.5-15.0); WHITE BLOOD COUNT (AUTO) 10.5 K/uL (4.3-11.0)
[2023-04-09 14:59] LABS: CARBON DIOXIDE 22 mmol/L (21-32); CHLORIDE 90 mmol/L (98-107); CREATININE 1.4 mg/dL (0.6-1.3); GLUCOSE 144 mg/dL (74-106); SODIUM SERUM 121 mmol/L (136-145); UREA NITROGEN, BLOOD 58 mg/dL (7-18)
[2023-04-09 15:07] LABS: POTASSIUM 6.3 mmol/L (3.5-5.1)
[2023-04-09] MEDS ORDERED: METO25TA6 PO (15:09)
[2023-04-09] MEDS ORDERED: DONE5TAB34 PO (15:09)
[2023-04-09] MEDS ORDERED: MEGE400O4 PO (15:09)
[2023-04-09] MEDS ORDERED: ESCI10TA PO (15:09)
[2023-04-09] MEDS ORDERED: SACU1TAB7 PO (15:09)
[2023-04-09] MEDS ORDERED: ATOR20TA PO (15:09)
[2023-04-09] MEDS ORDERED: SPIR25TA6 PO (15:09)
[2023-04-09] MEDS ORDERED: CLOP75TA15 PO (15:09)
[2023-04-09] MEDS ORDERED: LEVO75TA7 PO (15:09)
[2023-04-09] MEDS ORDERED: ASPI-1169 PO (15:09)
[2023-04-09] MEDS ORDERED: TAMS-12 PO (15:09)
[2023-04-09] MEDS ORDERED: AMIO100T4 PO (15:09)
[2023-04-09 15:10] VITALS: O2SAT 97
[2023-04-09] MEDS ORDERED: INSULIN REGULAR, HUMAN 100 UNIT/ML 10 ML VIAL ONE (15:12)
[2023-04-09] MEDS ORDERED: CALCIUM CHLORIDE 1,000 MG/10 ML DISP.SYRIN ONE (15:12)
[2023-04-09] MEDS ORDERED: SODIUM POLYSTYRENE SULFONATE 15 G/60 ML BOTTLE ONE ×2 (15:12→15:42)
[2023-04-09] MEDS ORDERED: SODIUM BICARBONATE SYR 50 MEQ/50 ML DISP.SYRIN ONE (15:12)
[2023-04-09] MEDS ORDERED: ALBUTEROL FS 2.5 MG/3 ML VIAL.NEB ONE (15:15)
[2023-04-09 15:20] VITALS: O2SAT 97
[2023-04-09] MEDS ORDERED: SODIUM BICARBONATE SYR 50 MEQ/50 ML DISP.SYRIN IV ONE (15:30)
[2023-04-09] MEDS ORDERED: SODIUM POLYSTYRENE SULFONATE 15 G/60 ML BOTTLE PO ONE ×2 (15:30→16:00)
[2023-04-09] MEDS ORDERED: INSULIN REGULAR, HUMAN 100 UNIT/ML 10 ML VIAL IV ONE (15:30)
[2023-04-09] MEDS ORDERED: ALBUTEROL FS 2.5 MG/3 ML VIAL.NEB NEB ONE (15:30)
[2023-04-09] MEDS ORDERED: CALCIUM CHLORIDE 1,000 MG/10 ML DISP.SYRIN IV ONE (15:30)
[2023-04-09 15:33] LABS: APPEARANCE,URINE CLEAR (CLEAR); BILIRUBIN,URINE NEGATIVE (NEGATIVE); BLOOD, URINE NEGATIVE Ery/uL (NEGATIVE); COLOR,URINE YELLOW (YELLOW); KETONES,URINE NEGATIVE (NEGATIVE); LEUKOCYTE ESTERASE ,URINE NEGATIVE (NEGATIVE); NITRITE, URINE NEGATIVE (NEGATIVE); PROTEIN,URINE TRACE mg/dl (NEGATIVE); UGLUCOSE NEGATIVE (NEGATIVE); UROBILINOGEN,URINE >=8.0 EU/dL (0.2)
[2023-04-09 16:17] LABS: RBC,URINE 0-2 /HPF (0-2)
[2023-04-09 16:18] LABS: ADD URINE CULTURE NO; BACTERIA,URINE None seen /HPF (None Seen); SQUAMOUS EPITHELIAL CELL,UR Rare /HPF (None Seen); WBC,URINE NONE SEEN /HPF (0-3)
[2023-04-09 16:30] VITALS: O2SAT 93
[2023-04-09] MEDS ORDERED: HEPARIN SODIUM,PORCINE/PF 50 UNIT/5 ML DISP.SYRIN IV ONE ×2 (17:30)
[2023-04-09] MEDS ORDERED: HEPARIN SODIUM, PORCINE 5000 UNITS/1 ML VIAL IV ONE (17:30)
[2023-04-09] MEDS ORDERED: ONDANSETRON HCL/PF 4 MG/2 ML VIAL IVP PRN (18:30)
[2023-04-09] MEDS ORDERED: ACETAMINOPHEN 325 MG TABLET PO PRN (18:30)
[2023-04-09] MEDS ORDERED: MORPHINE SULFATE INJ 2 MG/ML DISP.SYRIN IV PRN (18:30)
[2023-04-09] MEDS ORDERED: hydrALAZINE HCL IV 20 MG VIAL IV PRN (18:30)
[2023-04-09 19:19] LABS: LACTIC ACID 2.4 mmol/L (0.4-2.0)
[2023-04-09] MEDS: HEPARIN SODIUM, PORCINE 5000 UNITS/1 ML VIAL SQ SCH (22:50)
[2023-04-10] VITALS: BP 120/56; TEMP 98.4; O2SAT 96
[2023-04-10 03:26] LABS: CARBON DIOXIDE 24 mmol/L (21-32); CHLORIDE 93 mmol/L (98-107); CREATININE 1.3 mg/dL (0.6-1.3); GLUCOSE 144 mg/dL (74-106); POTASSIUM 4.6 mmol/L (3.5-5.1); SODIUM SERUM 126 mmol/L (136-145); UREA NITROGEN, BLOOD 47 mg/dL (7-18)
[2023-04-10 04:01] LABS: BILIRUBIN,DIRECT 0.3 mg/dL (0.0-0.2)
[2023-04-10] MEDS: IV NS 0.9% 1,000 ML IV PRN (04:05)
[2023-04-10 04:16] LABS: LACTIC ACID REFLEX 3.8 mmol/L (0.4-1.9)
[2023-04-10 06:25] LABS: BASOPHILS % (AUTO) 0.1 % (0.0-2.0); EOSINOPHILS # (AUTO) 0.1 K/uL (0.0-0.7); EOSINOPHILS % (AUTO) 1.1 % (0.0-6.0); HEMATOCRIT 33 % (39-51); HEMOGLOBIN 11.5 g/dL (13.5-17.5); LYMPHOCYTES # (AUTO) 1.7 K/uL (0.8-4.8); LYMPHOCYTES % (AUTO) 16.9 % (20.0-44.0); MEAN CORPUSCULAR HEMOGLOBIN 34 PG (26.0-33.0); MEAN CORPUSCULAR HGB CONC 35 g/dl (31.0-36.0); MEAN CORPUSCULAR VOLUME 98 fL (80-96); MONOCYTES # (AUTO) 0.9 K/uL (0.1-1.30); MONOCYTES % (AUTO) 9.6 % (2.0-12.0); NEUTROPHILS # (AUTO) 7.1 K/uL (1.8-8.9); NEUTROPHILS % (AUTO) 72.3 % (43.0-81.0); PLATELET COUNT (AUTO) 186 K/uL (150-450); RED BLOOD CELL COUNT(AUTO) 3.39 MIL/uL (4.5-6.0); RED CELL DISTRIBUTION WIDTH 13.4 % (11.5-15.0); WHITE BLOOD COUNT (AUTO) 9.8 K/uL (4.3-11.0)
[2023-04-10 06:37] LABS: ALBUMIN 2.9 g/dL (3.4-5.0); BILIRUBIN,TOTAL 0.9 mg/dL (0.2-1.0); CALCIUM, SERUM 8.9 mg/dL (8.5-10.1); CREATININE 1.1 mg/dL (0.6-1.3); MAGNESIUM 2.1 mg/dL (1.8-2.4); PHOSPHORUS 4.5 mg/dL (2.5-4.9); POTASSIUM 4.3 mmol/L (3.5-5.1); TOTAL PROTEIN, SERUM 6.1 g/dL (6.4-8.2)
[2023-04-10 07:00] VITALS: BP 113/57; TEMP 97.3; O2SAT 96
[2023-04-10] MEDS: LEVOTHYROXINE SODIUM 75 MCG TABLET PO SCH (07:57)
[2023-04-10] MEDS ORDERED: SPIRONOLACTONE 25 MG TABLET PO SCH (09:00)
[2023-04-10] MEDS: MEGESTROL ACETATE SUSP 400 MG/10 ML UDC PO SCH ×2 (09:19→17:06)
[2023-04-10] MEDS: ASPIRIN 81 MG TAB.CHEW PO SCH (09:27)
[2023-04-10] MEDS: CLOPIDOGREL BISULFATE 75 MG TABLET PO SCH (09:27)
[2023-04-10] MEDS: ESCITALOPRAM OXALATE (10 MG) 10 MG TABLET GT SCH (09:27)
[2023-04-10] MEDS: TAMSULOSIN 0.4 MG CAP.SR.24H PO SCH (09:27)
[2023-04-10] MEDS: DONEPEZIL 5 MG TABLET PO SCH (09:28)
[2023-04-10] MEDS: HEPARIN SODIUM, PORCINE 5000 UNITS/1 ML VIAL SQ SCH ×2 (09:28→21:37)
[2023-04-10] MEDS: SACUBITRIL/VALSARTAN 1 EACH TABLET PO SCH ×2 (09:42→16:48)
[2023-04-10] MEDS: METOPROLOL TARTRATE 25 MG TABLET PO SCH ×2 (09:42→16:48)
[2023-04-10] MEDS: AMIODARONE HCL 200 MG TABLET PO SCH (09:43)
[2023-04-10 12:00] VITALS: BP_SYST 113; BP_SYST 120; BP_DIAS 57; BP_DIAS 71; TEMP 97.3; TEMP 97.7; O2SAT 96; O2SAT 97
[2023-04-10 16:00] VITALS: BP 104/47; TEMP 97.3; O2SAT 99
[2023-04-10] MEDS: ATORVASTATIN 40 MG TABLET PO SCH (17:06)
[2023-04-10 20:00] VITALS: BP 127/50; TEMP 97.9; O2SAT 99
[2023-04-11 06:14] LABS: BASOPHILS % (AUTO) 0.1 % (0.0-2.0); EOSINOPHILS # (AUTO) 0.2 K/uL (0.0-0.7); EOSINOPHILS % (AUTO) 2.8 % (0.0-6.0); HEMATOCRIT 34 % (39-51); HEMOGLOBIN 11.5 g/dL (13.5-17.5); LYMPHOCYTES # (AUTO) 1.9 K/uL (0.8-4.8); LYMPHOCYTES % (AUTO) 22.5 % (20.0-44.0); MEAN CORPUSCULAR HEMOGLOBIN 34 PG (26.0-33.0); MEAN CORPUSCULAR HGB CONC 34 g/dl (31.0-36.0); MEAN CORPUSCULAR VOLUME 98 fL (80-96); MONOCYTES # (AUTO) 0.7 K/uL (0.1-1.30); MONOCYTES % (AUTO) 8.6 % (2.0-12.0); NEUTROPHILS # (AUTO) 5.5 K/uL (1.8-8.9); PLATELET COUNT (AUTO) 186 K/uL (150-450); RED BLOOD CELL COUNT(AUTO) 3.43 MIL/uL (4.5-6.0); RED CELL DISTRIBUTION WIDTH 13.3 % (11.5-15.0); WHITE BLOOD COUNT (AUTO) 8.3 K/uL (4.3-11.0)
[2023-04-11 06:37] LABS: CALCIUM, SERUM 8.4 mg/dL (8.5-10.1); CARBON DIOXIDE 23 mmol/L (21-32); CHLORIDE 96 mmol/L (98-107); GLUCOSE 96 mg/dL (74-106); MAGNESIUM 2.1 mg/dL (1.8-2.4); PHOSPHORUS 3.5 mg/dL (2.5-4.9); POTASSIUM 4.3 mmol/L (3.5-5.1); SODIUM SERUM 127 mmol/L (136-145); UREA NITROGEN, BLOOD 39 mg/dL (7-18)
[2023-04-11 07:30] VITALS: BP 103/49; TEMP 97.3; O2SAT 97
[2023-04-11] MEDS: LEVOTHYROXINE SODIUM 75 MCG TABLET PO SCH (08:23)
[2023-04-11] MEDS: METOPROLOL TARTRATE 25 MG TABLET PO SCH ×2 (09:00→17:00)
[2023-04-11] MEDS: AMIODARONE HCL 200 MG TABLET PO SCH (09:00)
[2023-04-11] MEDS: HEPARIN SODIUM, PORCINE 5000 UNITS/1 ML VIAL SQ SCH ×2 (09:00→20:29)
[2023-04-11] MEDS: ASPIRIN 81 MG TAB.CHEW PO SCH (09:37)
[2023-04-11] MEDS: MEGESTROL ACETATE SUSP 400 MG/10 ML UDC PO SCH ×2 (09:37→17:40)
[2023-04-11] MEDS: DONEPEZIL 5 MG TABLET PO SCH (09:37)
[2023-04-11] MEDS: ESCITALOPRAM OXALATE (10 MG) 10 MG TABLET GT SCH (09:37)
[2023-04-11] MEDS: CLOPIDOGREL BISULFATE 75 MG TABLET PO SCH (09:38)
[2023-04-11] MEDS: TAMSULOSIN 0.4 MG CAP.SR.24H PO SCH (09:38)
[2023-04-11] MEDS: SACUBITRIL/VALSARTAN 1 EACH TABLET PO SCH ×2 (09:42→17:40)
[2023-04-11 12:00] VITALS: BP 97/45; TEMP 97.3; O2SAT 96
[2023-04-11 16:00] VITALS: BP 105/58; TEMP 97.5; O2SAT 98
[2023-04-11] MEDS: ATORVASTATIN 40 MG TABLET PO SCH (17:40)
[2023-04-11] MEDS: ENSURE ENLIVE 237 ML LIQUID (VANILLA) PO SCH (17:45)
[2023-04-11] MEDS: PROSOURCE / PROSTAT (PYXIS) 30 ML UDC PO SCH (18:20)
[2023-04-11 21:36] VITALS: BP 121/54; TEMP 97.7; O2SAT 97
[2023-04-12 00:57] VITALS: BP 116/51; TEMP 97.7; O2SAT 98
[2023-04-12 04:52] VITALS: BP 112/52; TEMP 97.9; O2SAT 97
[2023-04-12] MEDS ORDERED: EMPA25TA PO (06:56)
[2023-04-12] MEDS: IV NS 0.9% 1,000 ML IV PRN (07:08)
[2023-04-12 07:30] VITALS: BP 118/55; TEMP 97.5; O2SAT 96
[2023-04-12] MEDS: LEVOTHYROXINE SODIUM 75 MCG TABLET PO SCH (07:52)
[2023-04-12] MEDS: MEGESTROL ACETATE SUSP 400 MG/10 ML UDC PO SCH ×2 (08:55→17:39)
[2023-04-12] MEDS: PROSOURCE / PROSTAT (PYXIS) 30 ML UDC PO SCH ×2 (08:55→17:39)
[2023-04-12] MEDS: ENSURE ENLIVE 237 ML LIQUID (VANILLA) PO SCH ×2 (08:55→17:29)
[2023-04-12] MEDS: DONEPEZIL 5 MG TABLET PO SCH (08:56)
[2023-04-12] MEDS: ASPIRIN 81 MG TAB.CHEW PO SCH (08:56)
[2023-04-12] MEDS: TAMSULOSIN 0.4 MG CAP.SR.24H PO SCH (08:56)
[2023-04-12] MEDS: ESCITALOPRAM OXALATE (10 MG) 10 MG TABLET GT SCH (08:56)
[2023-04-12] MEDS: SACUBITRIL/VALSARTAN 1 EACH TABLET PO SCH ×2 (09:29→17:00)
[2023-04-12] MEDS: METOPROLOL TARTRATE 25 MG TABLET PO SCH ×2 (09:30→17:00)
[2023-04-12] MEDS: CLOPIDOGREL BISULFATE 75 MG TABLET PO SCH (09:30)
[2023-04-12] MEDS: AMIODARONE HCL 200 MG TABLET PO SCH (09:30)
[2023-04-12] MEDS: HEPARIN SODIUM, PORCINE 5000 UNITS/1 ML VIAL SQ SCH ×2 (09:32→21:28)
[2023-04-12 12:00] VITALS: BP 92/40; TEMP 97.3; O2SAT 97
[2023-04-12 16:00] VITALS: BP 108/48; TEMP 98.1; O2SAT 99
[2023-04-12] MEDS: ATORVASTATIN 40 MG TABLET PO SCH (17:39)
[2023-04-12 20:00] VITALS: BP 120/50; TEMP 97.9; O2SAT 97
[2023-04-13] VITALS (7 sets, daily range): BP systolic 120–156; BP diastolic 50–55; TEMP 97.9–98.6; O2SAT 96–98
[2023-04-13] MEDS: IV NS 0.9% 1,000 ML IV PRN ×3 (02:21→21:34)
[2023-04-13] MEDS: LEVOTHYROXINE SODIUM 75 MCG TABLET PO SCH (07:41)
[2023-04-13] MEDS: SACUBITRIL/VALSARTAN 1 EACH TABLET PO SCH ×2 (08:47→17:00)
[2023-04-13] MEDS: AMIODARONE HCL 200 MG TABLET PO SCH (08:48)
[2023-04-13] MEDS: METOPROLOL TARTRATE 25 MG TABLET PO SCH ×2 (08:48→17:00)
[2023-04-13] MEDS: PROSOURCE / PROSTAT (PYXIS) 30 ML UDC PO SCH ×2 (08:56→17:32)
[2023-04-13] MEDS: ENSURE ENLIVE 237 ML LIQUID (VANILLA) PO SCH ×2 (08:56→17:32)
[2023-04-13] MEDS: MEGESTROL ACETATE SUSP 400 MG/10 ML UDC PO SCH ×2 (08:56→17:32)
[2023-04-13] MEDS: DONEPEZIL 5 MG TABLET PO SCH (08:57)
[2023-04-13] MEDS: CLOPIDOGREL BISULFATE 75 MG TABLET PO SCH (08:57)
[2023-04-13] MEDS: ESCITALOPRAM OXALATE (10 MG) 10 MG TABLET GT SCH (08:57)
[2023-04-13] MEDS: TAMSULOSIN 0.4 MG CAP.SR.24H PO SCH (08:57)
[2023-04-13] MEDS: ASPIRIN 81 MG TAB.CHEW PO SCH (08:57)
[2023-04-13] MEDS: HEPARIN SODIUM, PORCINE 5000 UNITS/1 ML VIAL SQ SCH ×2 (08:59→21:35)
[2023-04-13 11:10] LABS: CALCIUM, SERUM 8.2 mg/dL (8.5-10.1); CARBON DIOXIDE 23 mmol/L (21-32); CHLORIDE 104 mmol/L (98-107); GLUCOSE 147 mg/dL (74-106); POTASSIUM 4.1 mmol/L (3.5-5.1); SODIUM SERUM 134 mmol/L (136-145); UREA NITROGEN, BLOOD 29 mg/dL (7-18)
[2023-04-13] MEDS: ATORVASTATIN 40 MG TABLET PO SCH (17:33)
[2023-04-14] VITALS: BP 102/58; TEMP 98.4; O2SAT 97
[2023-04-14 05:00] VITALS: BP 136/56; TEMP 98.4; O2SAT 98
[2023-04-14 07:30] VITALS: BP 132/55; TEMP 97.7; O2SAT 96
[2023-04-14] MEDS: LEVOTHYROXINE SODIUM 75 MCG TABLET PO SCH (08:22)
[2023-04-14] MEDS: ENSURE ENLIVE 237 ML LIQUID (VANILLA) PO SCH (08:42)
[2023-04-14] MEDS: PROSOURCE / PROSTAT (PYXIS) 30 ML UDC PO SCH (08:42)
[2023-04-14] MEDS: METOPROLOL TARTRATE 25 MG TABLET PO SCH (09:10)
[2023-04-14 09:11] VITALS: BP 107/59
[2023-04-14] MEDS: ESCITALOPRAM OXALATE (10 MG) 10 MG TABLET GT SCH (09:11)
[2023-04-14] MEDS: DONEPEZIL 5 MG TABLET PO SCH (09:11)
[2023-04-14] MEDS: AMIODARONE HCL 200 MG TABLET PO SCH (09:11)
[2023-04-14] MEDS: TAMSULOSIN 0.4 MG CAP.SR.24H PO SCH (09:11)
[2023-04-14] MEDS: CLOPIDOGREL BISULFATE 75 MG TABLET PO SCH (09:11)
[2023-04-14] MEDS: ASPIRIN 81 MG TAB.CHEW PO SCH (09:11)
[2023-04-14] MEDS: MEGESTROL ACETATE SUSP 400 MG/10 ML UDC PO SCH (09:11)
[2023-04-14] MEDS: SACUBITRIL/VALSARTAN 1 EACH TABLET PO SCH (09:13)
[2023-04-14] MEDS: HEPARIN SODIUM, PORCINE 5000 UNITS/1 ML VIAL SQ SCH (09:23)
== END 2023-04-14 16:40 | disposition home health service (06) | DRG 683 ==
LOC: ER 13:44 → MED 18:00 → TELE 18:50 → MED 04-14 15:04
PROVIDERS: ADMIT Internal Medicine; ATTEND Internal Medicine
PROC: 5A1D70Z Performance of Urinary Filtration, Intermittent, Less than 6 Hours Per Day (ICD-10-PCS; principal; 2023-04-09)
PROC: 06HY33Z Insertion of Infusion Device into Lower Vein, Percutaneous Approach (ICD-10-PCS; 2023-04-09)
DX: N17.9 Acute kidney failure, unspecified (principal); E87.1 Hypo-osmolality and hyponatremia; I13.0 Hypertensive heart and chronic kidney disease with heart failure and stage 1 through stage 4 chronic kidney disease, or unspecified chronic kidney disease; I50.22 Chronic systolic (congestive) heart failure; E87.20 Acidosis, unspecified; E87.5 Hyperkalemia; N18.9 Chronic kidney disease, unspecified; R62.7 Adult failure to thrive; E86.9 Volume depletion, unspecified; D63.8 Anemia in other chronic diseases classified elsewhere; E03.9 Hypothyroidism, unspecified; I25.10 Atherosclerotic heart disease of native coronary artery without angina pectoris; I25.5 Ischemic cardiomyopathy; I48.91 Unspecified atrial fibrillation; Z79.02 Long term (current) use of antithrombotics/antiplatelets; Z79.899 Other long term (current) drug therapy; D63.1 Anemia in chronic kidney disease
CPT/HCPCS: 36415; 71045-TC; 76770-TC; 80048-TC; 80053-TC; 81001; 82247-TC; 82248-TC; 83605-TC; 83735-TC; 83970; 84100-TC; 84484-TC; 85025-TC; 90935-TC; 97110-TC; 97116-TC; 97530-TC; 97535-TC; A4223; G0378; J1642; J1644; J1815; J3490; J7030